=== PATIENT | female | born 2000 | race Caucasian/White ===

== ENCOUNTER 2020-12-17 14:21 | Emergency (ER) | payer OTHER ==
[~2020-12-17] VITALS: Ht 165.1 cm; Wt 81.6 kg
[2020-12-17] MEDS ORDERED: CIPRO500 MG PO (17:58)
[2020-12-17] MEDS ORDERED: KETO10TA2 PO (17:58)
== END 2020-12-17 18:45 | disposition home or self-care (01) ==
LOC: ER 14:21
DX: S71.122A Laceration with foreign body, left thigh, initial encounter (principal); W45.8XXA Other foreign body or object entering through skin, initial encounter; Y93.01 Activity, walking, marching and hiking; Y92.821 Forest as the place of occurrence of the external cause; Y99.8 Other external cause status